=== PATIENT | male | born 1970 | race Caucasian/White ===

== ENCOUNTER 2018-06-15 07:41 | Day surgery (SDC) | payer MEDICAID ==
[2018-06-15] MEDS ORDERED: Lactated Ringers 1,000 ML IV SCH (08:30)
[2018-06-15] MEDS ORDERED: fentaNYL 100 MCG/2 ML SDV ONE (09:25)
[2018-06-15] MEDS ORDERED: Propofol 200 MG/20 ML SDV ONE ×2 (09:25→09:45)
--- NOTE | 2018-06-15 11:14 | OR ---
DATE OF PROCEDURE: 06/15/2018 PREOPERATIVE DIAGNOSIS: Colon cancer screening. POSTOPERATIVE DIAGNOSIS: Two colon polyps, right colon and at 80 cm from the anal verge. PROCEDURE PERFORMED: Colonoscopy to the cecum with biopsy resection of right colon polyp and snare cautery polypectomy of polyp at 80 cm from the anal verge. SURGEON: Armin Morelos MD. ANESTHESIA: IV anesthesia with monitored anesthesia care. INDICATION: This 48-year-old white male is referred for a colonoscopy for colon cancer screening. He has never had a colonoscopic exam. I counseled him for the procedure including risks and alternatives, and he gave his informed consent to proceed. DESCRIPTION OF PROCEDURE: The patient was placed in the left lateral decubitus position. IV anesthesia was administered by the Anesthesia Service. Time-out was held. A rectal exam was performed, which was unremarkable. The flexible video Olympus colonoscope was introduced through his anus, up his rectum, and out his colon all the way to the cecum. Once the cecum was reached, the scope was slowly withdrawn examining the mucosa throughout. In the right colon, we saw a small polyp which was removed with multiple bites of the biopsy forceps. The scope was withdrawn further with no other lesions noted until we reached about 80 cm from anal verge. Here, another polyp was seen, which was a little larger. We initially biopsied it and then placed a snare about its base. It was elevated up away from the bowel wall and amputated with the snare. It was aspirated up through the scope and captured in a polyp trap. The scope was withdrawn further with no other lesions noted. No diverticula were seen. The scope was retroflexed in the rectum with the distal rectum appearing unremarkable. The scope was straightened and removed. He tolerated the procedure well. Armin Morelos MD /[id number]
--- NOTE | 2018-06-15 11:23 | OR ---
DATE OF PROCEDURE: 06/15/2018 MTDD
== END 2018-06-15 11:05 | disposition home or self-care (01) ==
LOC: JP.SDS 07:41
PROVIDERS: ATTEND Surgery
DX: Z12.11 Encounter for screening for malignant neoplasm of colon (principal); D12.2 Benign neoplasm of ascending colon; D12.4 Benign neoplasm of descending colon; I45.10 Unspecified right bundle-branch block; I12.9 Hypertensive chronic kidney disease with stage 1 through stage 4 chronic kidney disease, or unspecified chronic kidney disease; N18.3 Chronic kidney disease, stage 3 (moderate); F32.9 Major depressive disorder, single episode, unspecified; G47.30 Sleep apnea, unspecified; Z86.73 Personal history of transient ischemic attack (TIA), and cerebral infarction without residual deficits
CPT/HCPCS: 45380; 45385; 88305; J2704; J3010; J7120

== ENCOUNTER 2019-07-03 10:58 | Inpatient (IN) | payer MEDICAID, OTHER ==
[2019-07-03] MEDS ORDERED: Sodium Chloride 0.9% 1,000 ML IV SCH ×2 (11:45→13:30)
--- NOTE | 2019-07-03 11:53 | EDM.PDOC ---
ED HPI GENERAL MEDICAL PROBLEM - General Chief Complaint: Gastrointestinal Problem Stated Complaint: FLU ?? Time Seen by Provider: 07/03/19 11:30 Source of Information: Reports: Patient History Limitations: Reports: No Limitations - History of Present Illness INITIAL COMMENTS - FREE TEXT/NARRATIVE: 49-year-old male presents with lightheaded and dizziness, especially with ambulation along with intermittent shortness of breath. No fevers or chills. His problem started several days ago when he had 3 consecutive days of illness consisting of persistent emesis, nausea and vomiting and dry heaving. Some loose stools. No fevers or chills. He has had this in the past but it is never lasted this long. He has a history of hypertension and continues to take his blood pressure medicine. He claims he drank "a gallon" of Gatorade over 24 hours after he could start to drink fluids again but is not feeling better. He called the clinic to get an evaluation for his dizziness and weakness and they sent him to the emergency room. Onset: Gradual Duration: Day(s): (Over the past 5 to 7 days) Associated Symptoms: Reports: Malaise, Nausea/Vomiting (Nausea has improved), Shortness of Breath (Especially with activity), Weakness. Denies: Confusion, Chest Pain, Cough Headache Pain Score (Numeric/FACES): 3 - Related Data Allergies Allergy/AdvReac Type Severity Reaction Status Date / Time bupropion AdvReac Other Verified 07/03/19 11:22 varenicline [From Chantix] AdvReac Other Verified 07/03/19 11:22 Home Meds: Home Meds Aspirin [Aspirin EC] 325 mg PO DAILY 06/06/18 [History] FLUoxetine HCl [Prozac] 20 mg PO DAILY 06/06/18 [History] Fluticasone Propionate [Flonase] 2 spray INH DAILY 06/06/18 [History] Levothyroxine Sodium [Synthroid] 112 mcg PO DAILY 06/06/18 [History] Lisinopril 20 mg PO DAILY 06/06/18 [History] Propranolol HCl [Inderal LA] 60 mg PO DAILY 06/06/18 [History] Simvastatin 10 mg PO BEDTIME 06/06/18 [History] Past Medical History HEENT History: Reports: Allergic Rhinitis, Impaired Vision Cardiovascular History: Reports: High Cholesterol, Hypertension, Other (See Below) Other Cardiovascular History: rt. 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 2 years ago Psychiatric History: Reports: Addiction, Anxiety Endocrine/Metabolic History: Reports: Hypothyroidism Hematologic History: Reports: Anemia, Other (See Below) Other Hematologic History: Vitamin D Deficiency Dermatologic History: Reports: Psoriasis - Infectious Disease History Infectious Disease History: Reports: Chicken Pox - Past Surgical History Cardiovascular Surgical History: Reports: Other (See Below) Other Cardiovascular Surgeries/Procedures: angiogram GI Surgical History: Reports: Colonoscopy, Taylor Fundoplication, Polypectomy Social & Family History - Family History Family Medical History: Noncontributory - Tobacco Use Smoking Status *Q: Former Smoker Years of Tobacco use: 30 Used Tobacco, but Quit: Yes Month/Year Tobacco Last Used: 2015 - Caffeine Use Caffeine Use: Reports: None - Recreational Drug Use Recreational Drug Use: Yes Recreational Drug Type: Reports: Marijuana/Hashish ED ROS GENERAL - Review of Systems Review Of Systems: See Below Constitutional: Reports: Malaise, Decreased Appetite. Denies: Fever, Chills HEENT: Reports: No Symptoms Respiratory: Reports: Shortness of Breath (With activity) Cardiovascular: Reports: Dyspnea on Exertion. Denies: Chest Pain, Palpitations GI/Abdominal: Reports: Abdominal Pain (Muscles of the abdomen are sore from retching), Diarrhea (His nausea, vomiting and diarrhea have all improved), Nausea, Vomiting : Reports: Other (Decreased urinary frequency, no pain or dysuria) ED EXAM, GENERAL - Physical Exam Exam: See Below Exam Limited By: No Limitations General Appearance: Alert, No Apparent Distress Eye Exam: Bilateral Eye: Normal Inspection (Good hydration, no jaundice) Head: Atraumatic Respiratory/Chest: No Respiratory Distress, Lungs Clear Cardiovascular: Regular Rate, Rhythm. No: Tachycardia GI/Abdominal: Soft, Tender (Abdominal wall is tender but he has no guarding or rebound tenderness. Bowel sounds are hypoactive but present) Extremities: Normal Inspection. No: Pedal Edema Neurological: Alert, Oriented, No Motor/Sensory Deficits Psychiatric: Normal Affect, Normal Mood Skin Exam: Warm, Dry Course - Vital Signs Last Recorded V/S: Last Vital Signs Temp 95.2 F L 07/03/19 11:27 Pulse 56 L 07/03/19 13:15 Resp 17 07/03/19 13:15 BP 92/59 L 07/03/19 13:15 Pulse Ox 99 07/03/19 13:15 - Orders/Labs/Meds Orders: Active Orders 24 hr Category Date Time Status Sodium Chloride 0.9% [Normal Saline] 1,000 ml Med 07/03/19 11:45 Active IV ASDIRECTED Sodium Chloride 0.9% [Normal Saline] 1,000 ml Med 07/03/19 13:30 Active IV ASDIRECTED Medication Orders Sodium Chloride (Normal Saline) 1,000 mls @ 1,000 mls/hr IV ASDIRECTED VIRAL Last Admin: 07/03/19 11:47 Dose: 1,000 mls/hr Sodium Chloride (Normal Saline) 1,000 mls @ 1,000 mls/hr IV ASDIRECTED VIRAL Stop: 07/03/19 14:31 Labs: Laboratory Tests 07/03/19 07/03/19 Range/Units 11:47 11:47 WBC 7.8 (4.5-11.0) K/uL RBC 4.10 L (4.30-5.90) M/uL Hgb 13.9 (12.0-15.0) g/dL Hct 39.1 L (40.0-54.0) % MCV 95 (80-98) fL MCH 34 H (27-31) pg MCHC 36 (32-36) % Plt Count 258 (150-400) K/uL Neut % (Auto) 77 H (36-66) % Lymph % (Auto) 12 L (24-44) % [place] % (Auto) 10 H (2-6) % Eos % (Auto) 1 L (2-4) % Baso % (Auto) 1 (0-1) % Sodium 125 L (140-148) mmol/L Potassium 5.6 H (3.6-5.2) mmol/L Chloride 92 L (100-108) mmol/L Carbon Dioxide 16 L (21-32) mmol/L Anion Gap 22.6 H (5.0-14.0) mmol/L BUN 95 H* (7-18) mg/dL Creatinine 5.2 H* (0.8-1.3) mg/dL Est Cr Clr Drug Dosing 16.81 mL/min Estimated GFR (MDRD) 12 L (>60) Glucose 113 H (74-106) mg/dL Calcium 8.8 (8.5-10.1) mg/dL Total Bilirubin 0.9 (0.2-1.0) mg/dL AST 85 H (15-37) U/L ALT 135 H (12-78) U/L Alkaline Phosphatase 121 H (46-116) U/L Troponin I < 0.017 (0.000-0.056) ng/mL Total Protein 8.1 (6.4-8.2) g/dL Albumin 3.9 (3.4-5.0) g/dL Globulin 4.2 H (2.3-3.5) g/dL Albumin/Globulin Ratio 0.9 L (1.2-2.2) Lipase 742 H (73-393) U/L Meds: Medications Generic Name Dose Route Start Last Admin Trade Name Freq PRN Reason Stop Dose Admin Sodium Chloride 1,000 mls @ 1,000 mls/hr 07/03/19 11:45 07/03/19 11:47 Normal Saline IV 1,000 mls/hr ASDIRECTED VIRAL Administration Sodium Chloride 1,000 mls @ 1,000 mls/hr 07/03/19 13:30 Normal Saline IV 07/03/19 14:31 ASDIRECTED VIRAL - Re-Assessments/Exams Free Text/Narrative Re-Assessment/Exam: 07/03/19 11:56 Patient is not tachycardic but is hypotensive with an initial blood pressure of 72/48. This was repeated. An IV was started and he will be bolused with 1 L of normal saline, CBC CMP troponin and lipase were obtained. He has already taken his antihypertensive medications this morning. 07/03/19 12:40 Clinic records were reviewed and the patient does have a longstanding mild renal insufficiency, however today his creatinine returned markedly elevated at 5.2 and his BUN was 95. GFR is only 12. 07/03/19 12:42 AST, ALT, alkaline phosphatase and lipase are all mildly elevated, bilirubin is normal. Picture points to likely acute kidney injury from significant dehydration, and this patient may benefit from a day of IV hydration and monitoring kidney function. Condition will be discussed with the hospitalist service. Departure - Departure Time of Disposition: 13:31 Disposition: Admitted As Inpatient 64 Clinical Impression: Acute renal injury due to hypovolemia Hypotension Qualifiers: Hypotension type: hypotension due to hypovolemia Qualified Code(s): I95.89 - Other hypotension - Discharge Information Sepsis Event Note - Evaluation Sepsis Screening Result: No Definite Risk - Focused Exam Vital Signs: Vital Signs Temp Pulse Resp BP Pulse Ox 07/03/19 13:15 56 L 17 92/59 L 99 07/03/19 12:50 58 L 16 92/61 100 07/03/19 11:34 66 20 68/42 L 97 07/03/19 11:27 95.2 F L 68 16 70/48 L 100 07/03/19 11:20 95.2 F L 68 16 70/48 L 100 Date Exam was Performed: 07/03/19 Time Exam was Performed: 13:48 - My Orders Last 24 Hours: My Active Orders 07/03/19 11:45 Sodium Chloride 0.9% [Normal Saline] 1,000 ml IV ASDIRECTED - Assessment/Plan Last 24 Hours: My Active Orders 07/03/19 11:45 Sodium Chloride 0.9% [Normal Saline] 1,000 ml IV ASDIRECTED
--- NOTE | 2019-07-03 13:34 | PCM.HP.2 ---
H&P History of Present Illness - General Date of Service: 07/03/19 Admit Problem/Dx: Admission Diagnosis/Problem Admission Diagnosis/Problem Acute kidney injury Source of Information: Patient, Provider, RN Notes Reviewed History Limitations: Reports: No Limitations - History of Present Illness Initial Comments - Free Text/Narative: Mr. Norton is a 49-year-old gentleman who was admitted through the emergency department with weakness and lightheadedness secondary to dehydration and acute kidney injury. He reports he felt well until 6 days ago when he developed nausea with retching. He is status post Taylor fundoplication and is unable to vomit. Parents 3 full days of vomiting with essentially normal oral intake. During this period of time he also had 2 days of very watery diarrhea. Nausea and diarrhea have resolved and he denies significant abdominal pain other than abdominal wall pain related to retching. He is felt ongoing weakness and lightheadedness, yesterday he drank 1 gallon of Gatorade but noted no improvement in his symptoms. He presented to the emergency department today for further evaluation. White blood cell count normal and he has been afebrile. Blood pressure on initial presentation was very low with systolic pressure in the lower 60s. Blood pressure has improved after IV fluids. Creatinine was elevated at 5.2 with a potassium of 5.6. He has had a previous history of mild chronic kidney disease, certainly not to this extent. He does have a previous history of TIAs but these have been fairly good over the last 2 years. Headache Pain Score (Numeric/FACES): 3 - Related Data Allergies/Adverse Reactions: Allergies Allergy/AdvReac Type Severity Reaction Status Date / Time bupropion AdvReac Other Verified 07/03/19 11:22 varenicline [From Chantix] AdvReac Other Verified 07/03/19 11:22 Home Medications: Home Meds Aspirin [Aspirin EC] 325 mg PO DAILY 06/06/18 [History] FLUoxetine HCl [Prozac] 20 mg PO DAILY 06/06/18 [History] Fluticasone Propionate [Flonase] 2 spray INH DAILY 06/06/18 [History] Levothyroxine Sodium [Synthroid] 112 mcg PO DAILY 06/06/18 [History] Lisinopril 20 mg PO DAILY 06/06/18 [History] Propranolol HCl [Inderal LA] 60 mg PO DAILY 06/06/18 [History] Simvastatin 10 mg PO BEDTIME 06/06/18 [History] Past Medical History HEENT History: Reports: Allergic Rhinitis, Impaired Vision Cardiovascular History: Reports: High Cholesterol, Hypertension, Other (See Below) Other Cardiovascular History: rt. 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 2 years ago Psychiatric History: Reports: Addiction, Anxiety Endocrine/Metabolic History: Reports: Hypothyroidism Hematologic History: Reports: Anemia, Other (See Below) Other Hematologic History: Vitamin D Deficiency Dermatologic History: Reports: Psoriasis - Infectious Disease History Infectious Disease History: Reports: Chicken Pox - Past Surgical History Cardiovascular Surgical History: Reports: Other (See Below) Other Cardiovascular Surgeries/Procedures: angiogram GI Surgical History: Reports: Colonoscopy, Taylor Fundoplication, Polypectomy Social & Family History - Family History Family Medical History: Noncontributory - Tobacco Use Smoking Status *Q: Former Smoker Years of Tobacco use: 30 Used Tobacco, but Quit: Yes Month/Year Tobacco Last Used: 2015 - Caffeine Use Caffeine Use: Reports: None - Recreational Drug Use Recreational Drug Use: Yes Recreational Drug Type: Reports: Marijuana/Hashish H&P Review of Systems - Review of Systems: Review Of Systems: See Below General: Reports: Malaise, Weakness, Fatigue, Decreased Appetite, Weight Loss. Denies: Fever, Chills HEENT: Reports: No Symptoms Pulmonary: Reports: No Symptoms Cardiovascular: Reports: Dyspnea on Exertion, Lightheadedness. Denies: Chest Pain, Palpitations, Orthopnea, PND, Edema Gastrointestinal: Reports: Abdominal Pain. Denies: Diarrhea, Distension, Hematemesis, Hematochezia, Melena, Nausea, Vomiting Genitourinary: Reports: No Symptoms Musculoskeletal: Reports: No Symptoms Skin: Reports: No Symptoms Psychiatric: Reports: No Symptoms Neurological: Reports: No Symptoms Hematologic/Lymphatic: Reports: No Symptoms Immunologic: Reports: No Symptoms Exam - Exam Exam: See Below - Vital Signs Vital Signs: Last Vital Signs Temp 95.2 F L 07/03/19 11:27 Pulse 56 L 07/03/19 13:15 Resp 17 07/03/19 13:15 BP 92/59 L 07/03/19 13:15 Pulse Ox 99 07/03/19 13:15 Weight: 212 lb - Exam General: Alert, Oriented, Cooperative, Mild Distress HEENT: Conjunctiva Clear, Hearing Intact, Pupils Equal Neck: Supple, Trachea Midline, +2 Carotid Pulse wo Bruit Lungs: Clear to Auscultation, Normal Respiratory Effort Cardiovascular: Regular Rate, Regular Rhythm, Normal S1, Normal S2. No: Systolic Murmur, Diastolic Murmur GI/Abdominal Exam: Soft, No Organomegaly, Tender. No: Distended, Guarding, Rigid, Rebound Back Exam: Normal Inspection, Full Range of Motion Extremities: Non-Tender, No Pedal Edema Skin: Warm, Dry, Intact Neurological: Cranial Nerves Intact, Strength Equal Bilateral, Normal Speech, Normal Tone, Sensation Intact. No: Focal Deficit Neuro Extensive - Mental Status: Alert, Oriented x3, Normal Mood/Affect, Normal Cognition, Memory Intact - Patient Data Lab Results Last 24 hrs: Laboratory Results - last 24 hr 07/03/19 07/03/19 Range/Units 11:47 11:47 WBC 7.8 (4.5-11.0) K/uL RBC 4.10 L (4.30-5.90) M/uL Hgb 13.9 (12.0-15.0) g/dL Hct 39.1 L (40.0-54.0) % MCV 95 (80-98) fL MCH 34 H (27-31) pg MCHC 36 (32-36) % Plt Count 258 (150-400) K/uL Neut % (Auto) 77 H (36-66) % Lymph % (Auto) 12 L (24-44) % [place] % (Auto) 10 H (2-6) % Eos % (Auto) 1 L (2-4) % Baso % (Auto) 1 (0-1) % Sodium 125 L (140-148) mmol/L Potassium 5.6 H (3.6-5.2) mmol/L Chloride 92 L (100-108) mmol/L Carbon Dioxide 16 L (21-32) mmol/L Anion Gap 22.6 H (5.0-14.0) mmol/L BUN 95 H* (7-18) mg/dL Creatinine 5.2 H* (0.8-1.3) mg/dL Est Cr Clr Drug Dosing 16.81 mL/min Estimated GFR (MDRD) 12 L (>60) Glucose 113 H (74-106) mg/dL Calcium 8.8 (8.5-10.1) mg/dL Total Bilirubin 0.9 (0.2-1.0) mg/dL AST 85 H (15-37) U/L ALT 135 H (12-78) U/L Alkaline Phosphatase 121 H (46-116) U/L Troponin I < 0.017 (0.000-0.056) ng/mL Total Protein 8.1 (6.4-8.2) g/dL Albumin 3.9 (3.4-5.0) g/dL Globulin 4.2 H (2.3-3.5) g/dL Albumin/Globulin Ratio 0.9 L (1.2-2.2) Lipase 742 H (73-393) U/L Result Diagrams: 07/03/19 11:47 07/03/19 11:47 Sepsis Event Note - Evaluation Sepsis Screening Result: No Definite Risk - Focused Exam Vital Signs: Vital Signs Temp Pulse Resp BP Pulse Ox 07/03/19 13:15 56 L 17 92/59 L 99 07/03/19 12:50 58 L 16 92/61 100 07/03/19 11:34 66 20 68/42 L 97 07/03/19 11:27 95.2 F L 68 16 70/48 L 100 07/03/19 11:20 95.2 F L 68 16 70/48 L 100 Date Exam was Performed: 07/03/19 Time Exam was Performed: 13:29 *Q Meaningful Use (ADM) - VTE Risk Assess *Q Each Risk Factor Represents 1 Point: Age 41 - 59 years, Obesity ( BMI > 25 kg/m2 ) Total Score 1 Point Risk Factors: 2 Each Risk Factor Represents 2 Points: None Total Score 2 Point Risk Factors: 0 Each Risk Factor Represents 3 Points: None Total Score 3 Point Risk Factors: 0 Each Risk Factor Represents 5 Points: None Total Score 5 Point Risk Factors: 0 Venous Thromboembolism Risk Factor Score *Q: 2 Problem List Initiated/Reviewed/Updated: Yes Orders Last 24hrs: Active Orders 24 hr Category Date Time Status Patient Status Manage Transfer [TRANSFER] Routine ADT 07/03/19 13:22 Ordered Sodium Chloride 0.9% [Normal Saline] 1,000 ml Med 07/03/19 11:45 Active IV ASDIRECTED Sodium Chloride 0.9% [Normal Saline] 1,000 ml Med 07/03/19 13:30 Active IV ASDIRECTED Resuscitation Status Routine Resus Stat 07/03/19 13:24 Ordered Medication Orders Sodium Chloride (Normal Saline) 1,000 mls @ 1,000 mls/hr IV ASDIRECTED VIRAL Last Admin: 07/03/19 11:47 Dose: 1,000 mls/hr Sodium Chloride (Normal Saline) 1,000 mls @ 1,000 mls/hr IV ASDIRECTED VIRAL Stop: 07/03/19 14:31 Assessment/Plan Comment:: ASSESSMENT AND PLAN ACUTE KIDNEY INJURY-secondary to dehydration with intravascular volume depletion , associated with recent viral gastroenteritis. -Rest of IV fluid replacement -Maintain MAP of greater than 65 -Closely monitor urine output and renal function HYPERKALEMIA-mild, secondary to acute kidney injury -IV fluids as above -Reassess potassium in a.m. VIRAL GASTROENTERITIS-essentially resolved, no further symptoms of significant intra-abdominal pain, nausea, or diarrhea MAINTENANCE ISSUES -DVT prophylaxis; SCUDs -GI prophylaxis; Protonix 40 mg IV twice daily -Farmer catheter; not indicated -Nutrition; regular diet -Nicotine dependence; not required CODE STATUS-FULL CODE ADMISSION STATUS-patient will be admitted to inpatient status, expect at least a 2 night hospital stay for evaluation and management of problems as outlined above. At the time of this admission I do not reasonably expected evaluation and management of this problem will require more than a 96 hour hospital stay. DISPOSITION-anticipate discharge to home after the hospital stay. PRIMARY CARE PROVIDER-[facility] [place] - Mortality Measure Prognosis:: Good
[2019-07-03] MEDS ORDERED: Sodium Chloride 0.9% 10 ML Syringe FLUSH PRN (14:03)
[2019-07-03] MEDS: Sodium Chloride 0.9% 1,000 ML IV SCH ×3 (15:30→23:37)
[2019-07-03] MEDS: Pantoprazole 40 MG Vial IV SCH (16:55)
[2019-07-04] MEDS: Acetaminophen 325 MG Tab PO PRN ×4 (02:33→23:24)
[2019-07-04] MEDS: Sodium Chloride 0.9% 1,000 ML IV SCH ×2 (03:44→11:25)
[2019-07-04] MEDS: Pantoprazole 40 MG Vial IV SCH ×2 (03:53→16:15)
[2019-07-04] MEDS: Levothyroxine 112 MCG Tab PO SCH (07:13)
[2019-07-04] MEDS: Aspirin 325 MG Tab.EC PO SCH (08:34)
[2019-07-04] MEDS: FLUoxetine 20 MG Cap PO SCH (08:34)
--- NOTE | 2019-07-04 14:50 | PCM.PN ---
- General Info Date of Service: 07/04/19 Subjective Update: Mr. Norton has been stable since admission, appetite has improved and urine output has been very good. Renal function has shown significant improvement although remains elevated, potassium remains mildly elevated, and there is ongoing evidence of metabolic acidosis likely related to his kidney dysfunction. Functional Status: Reports: Tolerating Diet, Ambulating, Urinating - Review of Systems General: Reports: Weakness, Fatigue. Denies: Fever, Chills Pulmonary: Reports: No Symptoms Cardiovascular: Reports: No Symptoms Gastrointestinal: Reports: No Symptoms Genitourinary: Reports: No Symptoms - Patient Data Vitals - Most Recent: Last Vital Signs Temp 96.7 F L 07/04/19 11:21 Pulse 74 07/04/19 11:21 Resp 16 07/04/19 11:21 BP 94/56 L 07/04/19 11:21 Pulse Ox 96 07/04/19 11:21 Weight - Most Recent: 216 lb I&O - Last 24 Hours: Intake & Output 07/03/19 07/04/19 07/04/19 22:59 06:59 14:59 Intake Total 1920 2326 720 Output Total 2625 500 2375 Balance -705 1826 -1655 Lab Results Last 24 Hours: Laboratory Results - last 24 hr 07/04/19 07/04/19 Range/Units 04:20 04:20 WBC 3.9 L (4.5-11.0) K/uL RBC 3.22 L (4.30-5.90) M/uL Hgb 11.0 L D (12.0-15.0) g/dL Hct 31.4 L (40.0-54.0) % MCV 98 (80-98) fL MCH 34 H (27-31) pg MCHC 35 (32-36) % Plt Count 144 L (150-400) K/uL Neut % (Auto) 66 (36-66) % Lymph % (Auto) 21 L (24-44) % [place] % (Auto) 11 H (2-6) % Eos % (Auto) 1 L (2-4) % Baso % (Auto) 0 (0-1) % Sodium 134 L (140-148) mmol/L Potassium 5.5 H (3.6-5.2) mmol/L Chloride 103 (100-108) mmol/L Carbon Dioxide 16 L (21-32) mmol/L Anion Gap 20.5 H (5.0-14.0) mmol/L BUN 67 H (7-18) mg/dL Creatinine 2.5 H D (0.8-1.3) mg/dL Est Cr Clr Drug Dosing 34.96 mL/min Estimated GFR (MDRD) 27 L (>60) Glucose 95 (74-106) mg/dL Calcium 7.4 L D (8.5-10.1) mg/dL Med Orders - Current: Current Medications Acetaminophen (Tylenol) 650 mg PO Q4H PRN PRN Reason: Pain (Mild 1-3)/fever Last Admin: 07/04/19 07:24 Dose: 650 mg Aspirin (Ecotrin) 325 mg PO DAILY [facility] Last Admin: 07/04/19 08:34 Dose: 325 mg Fluoxetine HCl (Prozac) 20 mg PO DAILY [facility] Last Admin: 07/04/19 08:34 Dose: 20 mg Levothyroxine Sodium (Levothyroxine) 112 mcg PO DAILY@0730 [facility] Last Admin: 07/04/19 07:13 Dose: 112 mcg Ondansetron HCl (Zofran) 4 mg IV Q4H PRN PRN Reason: Nausea/Vomiting Pantoprazole Sodium (Protonix Iv) 40 mg IV Q12H [facility] Last Admin: 07/04/19 03:53 Dose: 40 mg Sodium Chloride (Saline Flush) 10 ml FLUSH ASDIRECTED PRN PRN Reason: Keep Vein Open Discontinued Medications Sodium Chloride (Normal Saline) 1,000 mls @ 1,000 mls/hr IV ASDIRECTED [facility] Last Admin: 07/03/19 11:47 Dose: 1,000 mls/hr Sodium Chloride (Normal Saline) 1,000 mls @ 1,000 mls/hr IV ASDIRECTED [facility] Stop: 07/03/19 14:31 Last Admin: 07/03/19 14:12 Dose: 1,000 mls/hr Sodium Chloride (Normal Saline) 1,000 mls @ 250 mls/hr IV ASDIRECTED [facility] Stop: 07/03/19 22:31 Last Admin: 07/03/19 19:37 Dose: 250 mls/hr Sodium Chloride (Normal Saline) 1,000 mls @ 125 mls/hr IV ASDIRECTED [facility] Last Admin: 07/04/19 11:25 Dose: 125 mls/hr - Exam General: Alert, Oriented, Cooperative, Mild Distress Lungs: Clear to Auscultation, Normal Respiratory Effort Cardiovascular: Regular Rate, Regular Rhythm, No Murmurs GI/Abdominal Exam: Soft, Non-Tender, No Organomegaly, No Distention Extremities: Non-Tender, No Pedal Edema Sepsis Event Note - Evaluation Sepsis Screening Result: No Definite Risk - Focused Exam Vital Signs: Vital Signs Temp Pulse Resp BP Pulse Ox 07/04/19 11:21 96.7 F L 74 16 94/56 L 96 07/04/19 08:35 96.4 F L 78 16 96/53 L 96 07/04/19 07:09 96.3 F L 74 16 90/62 99 Date Exam was Performed: 07/04/19 Time Exam was Performed: 14:47 - Problem List Review Problem List Initiated/Reviewed/Updated: Yes - My Orders Last 24 Hours: My Active Orders 07/03/19 14:03 Patient Status [ADT] Routine Ambulate [RC] QID Height and Weight [RC] DAILY Intake and Output [RC] QSHIFT Notify Provider Vital Signs [RC] ASDIRECTED Oxygen Therapy [RC] PRN Peripheral IV Care [RC] Q12H Up With Assistance [RC] ASDIRECTED Up to Chair [RC] QID VTE/DVT Education [RC] Per Unit Routine Vital Signs [RC] Q4H Acetaminophen [Tylenol] 650 mg PO Q4H PRN Ondansetron [Zofran] 4 mg IV Q4H PRN Sodium Chloride 0.9% [Saline Flush] 10 ml FLUSH ASDIRECTED PRN Peripheral IV Insertion Adult [OM.PC] Routine Sequential Compression Device [OM.PC] Per Unit Routine 07/03/19 16:00 Pantoprazole [ProTONIX IV] 40 mg IV Q12H 07/04/19 07:30 Levothyroxine 112 mcg PO DAILY@0730 07/04/19 09:00 Aspirin [Ecotrin] 325 mg PO DAILY FLUoxetine [PROzac] 20 mg PO DAILY 07/04/19 14:46 Convert IV to Saline Lock [OM.PC] Routine 07/04/19 17:00 BASIC METABOLIC PANEL,BMP [CHEM] Stat 07/05/19 05:00 BASIC METABOLIC PANEL,BMP [CHEM] Timed - Plan Plan:: ASSESSMENT AND PLAN ACUTE KIDNEY INJURY-secondary to dehydration with intravascular volume depletion , associated with recent viral gastroenteritis. Significant improvement since admission with significant decrease in creatinine. -Saline lock IV -Closely monitor urine output and renal function HYPERKALEMIA-mild, secondary to acute kidney injury, potassium level remains mildly elevated, expect further improvement over the last 24 hours -Reassess potassium in a.m. VIRAL GASTROENTERITIS-essentially resolved, no further symptoms of significant intra-abdominal pain, nausea, or diarrhea MAINTENANCE ISSUES -DVT prophylaxis; SCUDs -GI prophylaxis; Protonix 40 mg IV twice daily -Farmer catheter; not indicated -Nutrition; regular diet -Nicotine dependence; not required CODE STATUS-FULL CODE ADMISSION STATUS-patient will be admitted to inpatient status, expect at least a 2 night hospital stay for evaluation and management of problems as outlined above. At the time of this admission I do not reasonably expected evaluation and management of this problem will require more than a 96 hour hospital stay. DISPOSITION-anticipate discharge to home after the hospital stay. PRIMARY CARE PROVIDER-Jack Hooks
[2019-07-04] MEDS ORDERED: Docusate Sodium 100 MG Cap PO PRN (16:00)
[2019-07-04] MEDS ORDERED: Magnesium Hydroxide 400 MG/5 ML Susp 30 ML Cup PO PRN (16:00)
[2019-07-04] MEDS: Simvastatin 20 MG Tab PO SCH (20:36)
[2019-07-05] MEDS: Pantoprazole 40 MG Vial IV SCH ×2 (04:01→15:13)
[2019-07-05] MEDS ORDERED: Sodium Polystyrene Sulfonate 15 GM/60 ML Susp 60 ML Bot PO ONE ×4 (06:16→23:29)
[2019-07-05] MEDS: Levothyroxine 112 MCG Tab PO SCH (07:20)
[2019-07-05] MEDS: Ondansetron 4 MG/2 ML SDV IV PRN ×2 (08:26→23:56)
[2019-07-05] MEDS: FLUoxetine 20 MG Cap PO SCH (08:31)
[2019-07-05] MEDS: Aspirin 325 MG Tab.EC PO SCH (08:31)
--- NOTE | 2019-07-05 16:42 | PCM.PN ---
- General Info Date of Service: 07/05/19 Subjective Update: Mr. Norton has been stable since yesterday, appetite and energy level seem to be slowly improving, there is been no further diarrhea. Vital signs have been good and he has remained afebrile. Potassium level was rechecked yesterday evening and was in the upper range of normal. Unfortunately this morning and had increased to 6.1 and he did receive a dose of Kayexalate. Follow-up potassium this afternoon is still modestly elevated at 5.4. Functional Status: Reports: Tolerating Diet, Ambulating, Urinating - Review of Systems General: Reports: Weakness, Malaise. Denies: Fever, Chills Pulmonary: Reports: No Symptoms Cardiovascular: Reports: No Symptoms Gastrointestinal: Reports: No Symptoms - Patient Data Vitals - Most Recent: Last Vital Signs Temp 98.8 F 07/05/19 15:45 Pulse 89 07/05/19 15:45 Resp 18 07/05/19 15:45 BP 96/69 07/05/19 15:45 Pulse Ox 98 07/05/19 15:45 Weight - Most Recent: 214 lb 6.4 oz I&O - Last 24 Hours: Intake & Output 07/05/19 07/05/19 07/05/19 06:59 14:59 22:59 Intake Total 500 Balance 500 Lab Results Last 24 Hours: Laboratory Results - last 24 hr 07/04/19 07/05/19 07/05/19 Range/Units 16:53 05:49 13:45 Sodium 135 L 134 L (140-148) mmol/L Potassium 5.2 6.1 H* 5.4 H (3.6-5.2) mmol/L Chloride 103 100 (100-108) mmol/L Carbon Dioxide 20 L 24 (21-32) mmol/L Anion Gap 17.2 H 16.1 H (5.0-14.0) mmol/L BUN 54 H 43 H (7-18) mg/dL Creatinine 2.0 H 1.8 H (0.8-1.3) mg/dL Est Cr Clr Drug Dosing 43.70 48.55 mL/min Estimated GFR (MDRD) 35 L 40 L (>60) Glucose 106 105 (74-106) mg/dL Calcium 7.4 L 7.8 L (8.5-10.1) mg/dL Med Orders - Current: Current Medications Acetaminophen (Tylenol) 650 mg PO Q4H PRN PRN Reason: Pain (Mild 1-3)/fever Last Admin: 07/04/19 23:24 Dose: 650 mg Aspirin (Ecotrin) 325 mg PO DAILY [facility] Last Admin: 07/05/19 08:31 Dose: 325 mg Docusate Sodium (Colace) 100 mg PO BID PRN PRN Reason: Constipation Fluoxetine HCl (Prozac) 20 mg PO DAILY [facility] Last Admin: 07/05/19 08:31 Dose: 20 mg Levothyroxine Sodium (Levothyroxine) 112 mcg PO DAILY@0730 [facility] Last Admin: 07/05/19 07:20 Dose: 112 mcg Magnesium Hydroxide (Milk Of Magnesia) 30 ml PO Q4H PRN PRN Reason: Constipation Last Admin: 07/04/19 16:13 Dose: 30 ml Ondansetron HCl (Zofran) 4 mg IV Q4H PRN PRN Reason: Nausea/Vomiting Last Admin: 07/05/19 08:26 Dose: 4 mg Pantoprazole Sodium (Protonix Iv) 40 mg IV Q12H [facility] Last Admin: 07/05/19 15:13 Dose: 40 mg Simvastatin (Zocor) 10 mg PO BEDTIME [facility] Last Admin: 07/04/19 20:36 Dose: 10 mg Sodium Chloride (Saline Flush) 10 ml FLUSH ASDIRECTED PRN PRN Reason: Keep Vein Open Discontinued Medications Sodium Chloride (Normal Saline) 1,000 mls @ 1,000 mls/hr IV ASDIRECTED [facility] Last Admin: 07/03/19 11:47 Dose: 1,000 mls/hr Sodium Chloride (Normal Saline) 1,000 mls @ 1,000 mls/hr IV ASDIRECTED [facility] Stop: 07/03/19 14:31 Last Admin: 07/03/19 14:12 Dose: 1,000 mls/hr Sodium Chloride (Normal Saline) 1,000 mls @ 250 mls/hr IV ASDIRECTED [facility] Stop: 07/03/19 22:31 Last Admin: 07/03/19 19:37 Dose: 250 mls/hr Sodium Chloride (Normal Saline) 1,000 mls @ 125 mls/hr IV ASDIRECTED [facility] Last Admin: 07/04/19 11:25 Dose: 125 mls/hr Sodium Polystyrene Sulfonate (Kayexalate) 30 gm PO ONETIME ONE Stop: 07/05/19 06:17 Last Admin: 07/05/19 07:23 Dose: Not Given Sodium Polystyrene Sulfonate (Kayexalate) 30 gm PO ONETIME ONE Stop: 07/05/19 07:16 Sodium Polystyrene Sulfonate (Kayexalate) 30 gm PO ONETIME ONE Stop: 07/05/19 07:31 Last Admin: 07/05/19 07:20 Dose: 30 gm - Exam Quality Assessment: DVT Prophylaxis General: Alert, Oriented, Cooperative, Mild Distress Lungs: Clear to Auscultation, Normal Respiratory Effort Cardiovascular: Regular Rate, Regular Rhythm, No Murmurs GI/Abdominal Exam: Soft, No Organomegaly, Tender. No: Distended, Guarding, Rigid, Rebound Extremities: Non-Tender, No Pedal Edema Sepsis Event Note - Evaluation Sepsis Screening Result: No Definite Risk - Focused Exam Vital Signs: Vital Signs Temp Pulse Resp BP Pulse Ox 07/05/19 15:45 98.8 F 89 18 96/69 98 07/05/19 10:31 98.1 F 106 H 18 101/75 98 07/05/19 07:24 98.4 F 114 H 16 107/71 100 Date Exam was Performed: 07/05/19 Time Exam was Performed: 16:39 - Problem List Review Problem List Initiated/Reviewed/Updated: Yes - My Orders Last 24 Hours: My Active Orders 07/04/19 16:00 Docusate Sodium [Colace] 100 mg PO BID PRN Magnesium Hydroxide [Milk of Magnesia] 30 ml PO Q4H PRN 07/04/19 21:00 Simvastatin [Zocor] 10 mg PO BEDTIME 07/05/19 22:00 POTASSIUM,K [CHEM] Stat 07/06/19 05:00 BASIC METABOLIC PANEL,BMP [CHEM] Timed - Plan Plan:: ASSESSMENT AND PLAN ACUTE KIDNEY INJURY-secondary to dehydration with intravascular volume depletion , associated with recent viral gastroenteritis. Significant improvement since admission with significant decrease in creatinine. -Saline lock IV -Closely monitor urine output and renal function HYPERKALEMIA-potassium increased significantly this morning to 6.1, now 5.4 this afternoon. We will continue to monitor until it has stabilized within normal range -Reassess potassium later tonight and in a.m. VIRAL GASTROENTERITIS-essentially resolved, no further symptoms of significant intra-abdominal pain, nausea, or diarrhea MAINTENANCE ISSUES -DVT prophylaxis; SCUDs -GI prophylaxis; Protonix 40 mg IV twice daily -Farmer catheter; not indicated -Nutrition; regular diet -Nicotine dependence; not required CODE STATUS-FULL CODE ADMISSION STATUS-patient will be admitted to inpatient status, expect at least a 2 night hospital stay for evaluation and management of problems as outlined above. At the time of this admission I do not reasonably expected evaluation and management of this problem will require more than a 96 hour hospital stay. DISPOSITION-anticipate discharge to home after the hospital stay. PRIMARY CARE PROVIDER-Jack Hooks
[2019-07-05] MEDS: Simvastatin 20 MG Tab PO SCH (21:27)
[2019-07-06] MEDS: Pantoprazole 40 MG Vial IV SCH (05:21)
[2019-07-06] MEDS ORDERED: Pantoprazole 40 MG Tab.CR PO SCH (08:15)
[2019-07-06] MEDS ORDERED: Propranolol 60 MG Cap.ER PO SCH (09:00)
[2019-07-06] MEDS ORDERED: Non-Formulary Medication 1 Each (Omeprazole [Omeprazole] 20 MG) PO SCH (09:00)
[2019-07-06] MEDS ORDERED: Lisinopril 20 MG Tab PO SCH (09:00)
[2019-07-06] MEDS ORDERED: Hydrochlorothiazide 12.5 MG Cap PO SCH (09:00)
[2019-07-06] MEDS: Aspirin 325 MG Tab.EC PO SCH (09:01)
[2019-07-06] MEDS: Ondansetron 4 MG/2 ML SDV IV PRN ×3 (09:01→23:41)
[2019-07-06] MEDS: Levothyroxine 112 MCG Tab PO SCH (09:01)
[2019-07-06] MEDS: FLUoxetine 20 MG Cap PO SCH (09:01)
[2019-07-06] MEDS ORDERED: Sodium Chloride 0.9% 1,000 ML IV ONE (09:45)
--- NOTE | 2019-07-06 09:50 | PCM.PN ---
- General Info Date of Service: 07/06/19 Subjective Update: has redeveloped symptoms of nausea and diarrhea, seemingly related to use of Kayexalate for his persistent hyperkalemia. Potassium level is remained elevated despite 2 doses of Kayexalate, likely secondary to underlying persistent renal insufficiency. He has remained afebrile, blood pressure somewhat borderline likely secondary to recurrent dehydration. Functional Status: Reports: Ambulating, Urinating. Denies: Tolerating Diet - Review of Systems General: Reports: Weakness. Denies: Fever, Chills Pulmonary: Reports: No Symptoms Cardiovascular: Reports: No Symptoms Gastrointestinal: Reports: Abdominal Pain, Decreased Appetite, Diarrhea, Nausea , Vomiting. Denies: Difficulty Swallowing - Patient Data Vitals - Most Recent: Last Vital Signs Temp 99.4 F 07/06/19 08:52 Pulse 93 07/06/19 08:52 Resp 20 07/06/19 08:52 BP 95/79 07/06/19 09:00 Pulse Ox 99 07/06/19 08:52 Weight - Most Recent: 211 lb I&O - Last 24 Hours: Intake & Output 07/05/19 07/06/19 07/06/19 22:59 06:59 14:59 Intake Total 2030 400 Balance 2030 400 Lab Results Last 24 Hours: Laboratory Results - last 24 hr 07/05/19 07/05/19 07/06/19 Range/Units 13:45 21:55 05:46 Sodium 133 L (140-148) mmol/L Potassium 5.4 H 5.5 H 5.5 H (3.6-5.2) mmol/L Chloride 98 L (100-108) mmol/L Carbon Dioxide 24 (21-32) mmol/L Anion Gap 16.5 H (5.0-14.0) mmol/L BUN 30 H (7-18) mg/dL Creatinine 1.8 H (0.8-1.3) mg/dL Est Cr Clr Drug Dosing 48.55 mL/min Estimated GFR (MDRD) 40 L (>60) Glucose 113 H (74-106) mg/dL Calcium 7.4 L (8.5-10.1) mg/dL Med Orders - Current: Current Medications Acetaminophen (Tylenol) 650 mg PO Q4H PRN PRN Reason: Pain (Mild 1-3)/fever Last Admin: 07/04/19 23:24 Dose: 650 mg Aspirin (Ecotrin) 325 mg PO DAILY [facility] Last Admin: 07/06/19 09:01 Dose: 325 mg Docusate Sodium (Colace) 100 mg PO BID PRN PRN Reason: Constipation Fluoxetine HCl (Prozac) 20 mg PO DAILY [facility] [place] Last Admin: 07/06/19 09:01 Dose: 20 mg Sodium Chloride (Normal Saline) 1,000 mls @ 500 mls/hr IV ASDIRECTED [facility] [place] Stop: 07/06/19 13:46 Sodium Chloride (Normal Saline) 1,000 mls @ 125 mls/hr IV ASDIRECTED [facility] [place] Levothyroxine Sodium (Levothyroxine) 112 mcg PO DAILY@0730 [facility] Last Admin: 07/06/19 09:01 Dose: 112 mcg Magnesium Hydroxide (Milk Of Magnesia) 30 ml PO Q4H PRN PRN Reason: Constipation Last Admin: 07/04/19 16:13 Dose: 30 ml Ondansetron HCl (Zofran) 4 mg IV Q4H PRN PRN Reason: Nausea/Vomiting Last Admin: 07/06/19 09:01 Dose: 4 mg Pantoprazole Sodium (Protonix) 40 mg PO ACBREAKFAST [facility] Simvastatin (Zocor) 10 mg PO BEDTIME [facility] Last Admin: 07/05/19 21:27 Dose: 10 mg Sodium Chloride (Saline Flush) 10 ml FLUSH ASDIRECTED PRN PRN Reason: Keep Vein Open Discontinued Medications Hydrochlorothiazide (Hydrochlorothiazide) 12.5 mg PO DAILY [facility] Last Admin: 07/06/19 08:59 Dose: Not Given Sodium Chloride (Normal Saline) 1,000 mls @ 1,000 mls/hr IV ASDIRECTED [facility] [place] Last Admin: 07/03/19 11:47 Dose: 1,000 mls/hr Sodium Chloride (Normal Saline) 1,000 mls @ 1,000 mls/hr IV ASDIRECTED [facility] Stop: 07/03/19 14:31 Last Admin: 07/03/19 14:12 Dose: 1,000 mls/hr Sodium Chloride (Normal Saline) 1,000 mls @ 250 mls/hr IV ASDIRECTED [facility] [place] Stop: 07/03/19 22:31 Last Admin: 07/03/19 19:37 Dose: 250 mls/hr Sodium Chloride (Normal Saline) 1,000 mls @ 125 mls/hr IV ASDIRECTED [facility] Last Admin: 07/04/19 11:25 Dose: 125 mls/hr Lisinopril (Prinivil) 20 mg PO DAILY [facility] [place] Last Admin: 07/06/19 09:00 Dose: Not Given Pantoprazole Sodium (Protonix Iv) 40 mg IV Q12H [facility] Last Admin: 07/06/19 05:21 Dose: 40 mg Propranolol HCl (Inderal La) 60 mg PO DAILY [facility] Last Admin: 07/06/19 09:00 Dose: Not Given Sodium Polystyrene Sulfonate (Kayexalate) 30 gm PO ONETIME ONE Stop: 07/05/19 06:17 Last Admin: 07/05/19 07:23 Dose: Not Given Sodium Polystyrene Sulfonate (Kayexalate) 30 gm PO ONETIME ONE Stop: 07/05/19 07:16 Sodium Polystyrene Sulfonate (Kayexalate) 30 gm PO ONETIME ONE Stop: 07/05/19 07:31 Last Admin: 07/05/19 07:20 Dose: 30 gm Sodium Polystyrene Sulfonate (Kayexalate) 30 gm PO ONETIME ONE Stop: 07/05/19 23:30 Last Admin: 07/05/19 23:48 Dose: 30 gm - Exam Quality Assessment: DVT Prophylaxis General: Alert, Oriented, Moderate Distress Lungs: Clear to Auscultation, Normal Respiratory Effort Cardiovascular: Regular Rate, Regular Rhythm, No Murmurs GI/Abdominal Exam: Soft, No Organomegaly, Tender. No: Distended, Guarding, Rigid, Rebound Extremities: Non-Tender, No Pedal Edema Sepsis Event Note - Evaluation Sepsis Screening Result: No Definite Risk - Focused Exam Vital Signs: Vital Signs Temp Pulse Resp BP BP Pulse Ox 07/06/19 09:00 95/79 07/06/19 08:52 99.4 F 93 20 95/79 99 07/06/19 02:31 98 F 103 H 18 117/77 97 07/05/19 23:47 98.7 F 99 18 97/66 98 Date Exam was Performed: 07/06/19 Time Exam was Performed: 09:47 - Problem List Review Problem List Initiated/Reviewed/Updated: Yes - My Orders Last 24 Hours: My Active Orders 07/06/19 09:45 Sodium Chloride 0.9% [Normal Saline] 1,000 ml IV ASDIRECTED 07/06/19 13:45 Sodium Chloride 0.9% @ 125 MLS/HR (1000ml) Sodium Chloride 0.9% [Normal Saline] 1,000 ml IV ASDIRECTED 07/06/19 17:00 BASIC METABOLIC PANEL,BMP [CHEM] Stat 07/07/19 05:00 BASIC METABOLIC PANEL,BMP [CHEM] Timed 07/07/19 07:30 Pantoprazole [ProTONIX] 40 mg PO ACBREAKFAST - Plan Plan:: ASSESSMENT AND PLAN ACUTE KIDNEY INJURY-secondary to dehydration with intravascular volume depletion , associated with recent viral gastroenteritis. Creatinine has been stable since yesterday with no further improvement -Saline lock IV -Closely monitor urine output and renal function HYPERKALEMIA-potassium level has remained mildly elevated despite recurrent doses of Kayexalate -Reassess potassium later tonight and in a.m. VIRAL GASTROENTERITIS-he has experienced recurrent symptoms of nausea with retching and diarrhea, likely secondary to Kayexalate -IV fluids for hydration MAINTENANCE ISSUES -DVT prophylaxis; SCUDs -GI prophylaxis; Protonix 40 mg IV twice daily -Farmer catheter; not indicated -Nutrition; regular diet -Nicotine dependence; not required CODE STATUS-FULL CODE ADMISSION STATUS-patient will be admitted to inpatient status, expect at least a 2 night hospital stay for evaluation and management of problems as outlined above. At the time of this admission I do not reasonably expected evaluation and management of this problem will require more than a 96 hour hospital stay. DISPOSITION-anticipate discharge to home after the hospital stay. PRIMARY CARE PROVIDER-Jack Hooks
[2019-07-06] MEDS ORDERED: Sodium Chloride 0.9% 1,000 ML IV SCH (10:00)
[2019-07-06] MEDS: Sodium Chloride 0.9% 1,000 ML IV SCH ×2 (13:51→19:43)
[2019-07-06] MEDS: Simvastatin 20 MG Tab PO SCH (20:37)
[2019-07-07] MEDS: Sodium Chloride 0.9% 1,000 ML IV SCH (04:49)
[2019-07-07] MEDS: Acetaminophen 325 MG Tab PO PRN (04:51)
[2019-07-07] MEDS ORDERED: Pantoprazole 40 MG Tab.CR PO SCH (07:30)
[2019-07-07] MEDS: Levothyroxine 112 MCG Tab PO SCH (08:24)
[2019-07-07] MEDS: Aspirin 325 MG Tab.EC PO SCH (08:24)
[2019-07-07] MEDS: FLUoxetine 20 MG Cap PO SCH (08:25)
[2019-07-07] MEDS ORDERED: Calcium Carbonate/Vitamin D3 1500 MG-400 Units Tab PO SCH (09:00)
[2019-07-07] MEDS ORDERED: Calcium Gluconate 2 GM in Sodium Chloride 0.9% 100 ML IV ONE (10:00)
--- NOTE | 2019-07-07 12:58 | PCM.DCSUM1 ---
Discharge Summary - Hospital Course Brief History: Mr. Nroton is a 49-year-old gentleman who was admitted through the emergency department with hyperkalemia and acute kidney injury secondary to intravascular volume depletion and dehydration, related to recent episode of viral gastroenteritis. - Discharge Data Discharge Date: 07/07/19 Discharge Disposition: Home, Self-Care 01 Condition: Good - Referral to Home Health Primary Care Physician: Jack Hooks NP - Discharge Diagnosis/Problem(s) (1) Hyperkalemia SNOMED Code(s): 81206052 ICD Code: E87.5 - HYPERKALEMIA Status: Acute Current Visit: Yes (2) Acute renal injury due to hypovolemia SNOMED Code(s): 533101227 ICD Code: N17.9 - ACUTE KIDNEY FAILURE, UNSPECIFIED; E86.1 - HYPOVOLEMIA Status: Acute Current Visit: No (3) Hypotension SNOMED Code(s): 32773976 ICD Code: I95.9 - HYPOTENSION, UNSPECIFIED Status: Acute Current Visit: No Qualifiers: Hypotension type: hypotension due to hypovolemia Qualified Code(s): I95.89 - Other hypotension; E86.1 - Hypovolemia (4) CKD (chronic kidney disease), stage III SNOMED Code(s): 949882645 ICD Code: N18.3 - CHRONIC KIDNEY DISEASE, STAGE 3 (MODERATE) Status: Chronic Current Visit: No - Patient Summary/Data Hospital Course: Mr. Norton is a 49-year-old gentleman who was admitted through the emergency department with weakness and lightheadedness secondary to dehydration and acute kidney injury. He reports he felt well until 6 days ago when he developed nausea with retching. He is status post Taylor fundoplication and is unable to vomit. He experienced 3 full days of vomiting with essentially no oral intake. During this period of time he also had 2 days of very watery diarrhea. Nausea and diarrhea have resolved and he denies significant abdominal pain other than abdominal wall pain related to retching. He has felt ongoing weakness and lightheadedness, yesterday he drank 1 gallon of Gatorade but noted no improvement in his symptoms. He presented to the emergency department today for further evaluation. White blood cell count normal and he has been afebrile. Blood pressure on initial presentation was very low with systolic pressure in the lower 60s. Blood pressure has improved after IV fluids. Creatinine was elevated at 5.2 with a potassium of 5.6. He has had a previous history of mild chronic kidney disease, certainly not to this extent. He does have a previous history of TIAs but these have been fairly good over the last 2 years. While in the emergency department and after admission he received vigorous IV fluid replacement and then ongoing IV fluid replacement over the next few days. Renal function gradually improved and was almost back to baseline with a creatinine of 1.4 at the time of discharge. He did have ongoing hyperkalemia, likely related to his ongoing but progressively improving kidney injury. Potassium at one point did increase to 6.1 and he received 2 doses of oral Kayexalate. By the time of discharge his potassium level was within normal range. He developed recurrent nausea and diarrhea which was thought secondary to the Kayexalate. So he was placed back on additional IV fluids prior to discharge. On the morning of discharge calcium level was noted to be low as well as ionized calcium. He was started on oral calcium replacement and also received IV infusion of calcium gluconate. Activity will be as tolerated and he will resume his usual diet. Follow-up appointment will be scheduled with his primary care provider within 1 week and a BMP will be obtained at the time of follow-up appointment. - Patient Instructions Diet: Usual Diet as Tolerated Activity: As Tolerated Other/Special Instructions: Schedule follow-up appointment with primary care provider within 1 week. BMP should be obtained at the time of follow-up appointment. - Discharge Plan *PRESCRIPTION DRUG MONITORING PROGRAM REVIEWED*: Not Applicable *COPY OF PRESCRIPTION DRUG MONITORING REPORT IN PATIENT PAUL: Not Applicable Prescriptions/Med Rec: Calcium Carbonate/Vitamin D3 [Caltrate 600+D 1500 MG-400 Units] 1 tab PO BID # 60 tablet Home Medications: Home Meds Aspirin [Aspirin EC] 325 mg PO DAILY 06/06/18 [History] FLUoxetine HCl [Prozac] 20 mg PO DAILY 06/06/18 [History] Fluticasone Propionate [Flonase] 2 spray INH DAILY 06/06/18 [History] Levothyroxine Sodium [Synthroid] 112 mcg PO DAILY 06/06/18 [History] Lisinopril 20 mg PO DAILY 06/06/18 [History] Propranolol HCl [Inderal LA] 60 mg PO DAILY 06/06/18 [History] Simvastatin 10 mg PO BEDTIME 06/06/18 [History] Cholecalciferol (Vitamin D3) [Vitamin D3] 50 mcg PO DAILY 07/03/19 [History] Folic Acid 1 mg PO DAILY 07/03/19 [History] Omeprazole 20 mg PO DAILY 07/03/19 [History] Triamcinolone Acetonide [Triamcinolone Acetonide 0.5% Oint] 1 applic TOP BID [History] hydroCHLOROthiazide [Hydrochlorothiazide] 12.5 mg PO DAILY 07/03/19 [History] Calcium Carbonate/Vitamin D3 [Caltrate 600+D 1500 MG-400 Units] 1 tab PO BID # 60 tablet 07/07/19 [Rx] Referrals: Jack Hooks NP [Primary Care Provider] - 07/13/19 1:00 pm (Please arrive at 1230 for a lab appointment prior to seeing your provider.) - Discharge Summary/Plan Comment DC Time >30 min.: No - Patient Data Vitals - Most Recent: Last Vital Signs Temp 97.1 F 07/07/19 10:44 Pulse 85 07/07/19 10:44 Resp 16 07/07/19 10:44 BP 109/75 07/07/19 10:44 Pulse Ox 97 07/07/19 10:44 Weight - Most Recent: 217 lb I&O - Last 24 hours: Intake & Output 07/06/19 07/07/19 07/07/19 22:59 06:59 14:59 Intake Total 2689 1485 Output Total 900 Balance 1789 1485 Lab Results - Last 24 hrs: Laboratory Results - last 24 hr 07/06/19 07/07/19 07/07/19 Range/Units 17:00 05:49 07:12 Sodium 133 L 133 L (140-148) mmol/L Potassium 4.4 4.5 (3.6-5.2) mmol/L Chloride 99 L 100 (100-108) mmol/L Carbon Dioxide 24 24 (21-32) mmol/L Anion Gap 14.4 H 13.5 (5.0-14.0) mmol/L BUN 25 H 19 H (7-18) mg/dL Creatinine 1.6 H 1.4 H (0.8-1.3) mg/dL Est Cr Clr Drug Dosing 54.62 62.42 mL/min Estimated GFR (MDRD) 46 L 53 L (>60) Glucose 96 98 (74-106) mg/dL Calcium 7.0 L 6.6 L* (8.5-10.1) mg/dL POC WB Ioniz Calcium 0.88 L* (1.12-1.32) mmol/L Med Orders - Current: Current Medications Acetaminophen (Tylenol) 650 mg PO Q4H PRN PRN Reason: Pain (Mild 1-3)/fever Last Admin: 07/07/19 04:51 Dose: 650 mg Aspirin (Ecotrin) 325 mg PO DAILY [facility] Last Admin: 07/07/19 08:24 Dose: 325 mg Calcium Carbonate (Caltrate 600+D 1500 Mg-400 Units) 1 tab PO BID [facility] Last Admin: 07/07/19 10:37 Dose: 1 tab Docusate Sodium (Colace) 100 mg PO BID PRN PRN Reason: Constipation Fluoxetine HCl (Prozac) 20 mg PO DAILY [facility] Last Admin: 07/07/19 08:25 Dose: 20 mg Sodium Chloride (Normal Saline) 1,000 mls @ 125 mls/hr IV ASDIRECTED [facility] Last Admin: 07/07/19 04:49 Dose: 125 mls/hr Levothyroxine Sodium (Levothyroxine) 112 mcg PO DAILY@0730 [facility] Last Admin: 07/07/19 08:24 Dose: 112 mcg Magnesium Hydroxide (Milk Of Magnesia) 30 ml PO Q4H PRN PRN Reason: Constipation Last Admin: 07/04/19 16:13 Dose: 30 ml Ondansetron HCl (Zofran) 4 mg IV Q4H PRN PRN Reason: Nausea/Vomiting Last Admin: 07/06/19 23:41 Dose: 4 mg Pantoprazole Sodium (Protonix) 40 mg PO ACBREAKFAST [facility] Last Admin: 07/07/19 08:24 Dose: 40 mg Simvastatin (Zocor) 10 mg PO BEDTIME [facility] Last Admin: 07/06/19 20:37 Dose: 10 mg Sodium Chloride (Saline Flush) 10 ml FLUSH ASDIRECTED PRN PRN Reason: Keep Vein Open Discontinued Medications Hydrochlorothiazide (Hydrochlorothiazide) 12.5 mg PO DAILY [facility] Last Admin: 07/06/19 08:59 Dose: Not Given Sodium Chloride (Normal Saline) 1,000 mls @ 1,000 mls/hr IV ASDIRECTED [facility] Last Admin: 07/03/19 11:47 Dose: 1,000 mls/hr Sodium Chloride (Normal Saline) 1,000 mls @ 1,000 mls/hr IV ASDIRECTED [facility] Stop: 07/03/19 14:31 Last Admin: 07/03/19 14:12 Dose: 1,000 mls/hr Sodium Chloride (Normal Saline) 1,000 mls @ 250 mls/hr IV ASDIRECTED [facility] Stop: 07/03/19 22:31 Last Admin: 07/03/19 19:37 Dose: 250 mls/hr Sodium Chloride (Normal Saline) 1,000 mls @ 125 mls/hr IV ASDIRECTED [facility] Last Admin: 07/04/19 11:25 Dose: 125 mls/hr Sodium Chloride (Normal Saline) 1,000 mls @ 500 mls/hr IV ASDIRECTED [facility] Stop: 07/06/19 13:30 Last Admin: 07/06/19 10:05 Dose: 500 mls/hr Calcium Gluconate 2 gm/ Sodium (Chloride) 120 mls @ 100 mls/hr IV ONETIME ONE Stop: 07/07/19 11:11 Last Admin: 07/07/19 10:33 Dose: 100 mls/hr Lisinopril (Prinivil) 20 mg PO DAILY [facility] Last Admin: 07/06/19 09:00 Dose: Not Given Pantoprazole Sodium (Protonix Iv) 40 mg IV Q12H [facility] Last Admin: 07/06/19 05:21 Dose: 40 mg Propranolol HCl (Inderal La) 60 mg PO DAILY [facility] Last Admin: 07/06/19 09:00 Dose: Not Given Sodium Polystyrene Sulfonate (Kayexalate) 30 gm PO ONETIME ONE Stop: 07/05/19 06:17 Last Admin: 07/05/19 07:23 Dose: Not Given Sodium Polystyrene Sulfonate (Kayexalate) 30 gm PO ONETIME ONE Stop: 07/05/19 07:16 Sodium Polystyrene Sulfonate (Kayexalate) 30 gm PO ONETIME ONE Stop: 07/05/19 07:31 Last Admin: 07/05/19 07:20 Dose: 30 gm Sodium Polystyrene Sulfonate (Kayexalate) 30 gm PO ONETIME ONE Stop: 07/05/19 23:30 Last Admin: 07/05/19 23:48 Dose: 30 gm - Exam General: Reports: Alert, Oriented, Cooperative, No Acute Distress Lungs: Reports: Clear to Auscultation, Normal Respiratory Effort Cardiovascular: Reports: Regular Rate, Regular Rhythm, No Murmurs GI/Abdominal Exam: Soft, Non-Tender, No Organomegaly, No Distention
== END 2019-07-07 13:00 | disposition home or self-care (01) | DRG 641 ==
LOC: JP.ED 10:58 → JP.MS 13:22
PROVIDERS: ADMIT Hospitalist; ATTEND Hospitalist
DX: E86.0 Dehydration (principal); N17.9 Acute kidney failure, unspecified; E86.1 Hypovolemia; I95.89 Other hypotension; I12.9 Hypertensive chronic kidney disease with stage 1 through stage 4 chronic kidney disease, or unspecified chronic kidney disease; N18.3 Chronic kidney disease, stage 3 (moderate); E78.00 Pure hypercholesterolemia, unspecified; F41.9 Anxiety disorder, unspecified; E03.9 Hypothyroidism, unspecified; D64.9 Anemia, unspecified; G47.30 Sleep apnea, unspecified; A08.4 Viral intestinal infection, unspecified; Z86.73 Personal history of transient ischemic attack (TIA), and cerebral infarction without residual deficits; Z87.891 Personal history of nicotine dependence; Z88.8 Allergy status to other drugs, medicaments and biological substances; Z79.82 Long term (current) use of aspirin; Z79.890 Hormone replacement therapy; Z79.899 Other long term (current) drug therapy
CPT/HCPCS: 36415; 80048; 80053; 82330; 83690; 84132; 84484; 85025; 96360; 99285-25; A9270-GY; C9113; J0610; J2405; J7030; J7050

== ENCOUNTER 2019-09-21 10:43 | Emergency (ER) | payer OTHER ==
[2019-09-21] MEDS ORDERED: Diphtheria,Pertussis(Acell),Tetanus Vaccine 0.5 ML SDV IM ONE (11:20)
--- NOTE | 2019-09-21 11:20 | EDM.PDOC ---
ED HPI GENERAL MEDICAL PROBLEM - General Chief Complaint: Head Injury Stated Complaint: FELL AND HIT HEAD Time Seen by Provider: 09/21/19 11:05 Source of Information: Reports: Patient, Old Records, RN History Limitations: Reports: No Limitations - History of Present Illness INITIAL COMMENTS - FREE TEXT/NARRATIVE: 49 yo male got dizzy in the shower 2 d ago and fell hand hit his head incurring a superficial laceration at the anterior hair line. He has some amnesia as to events from around that time. He had off work yesterday and is supposed to work today, but does not feel well. Called the clinic and was told to come to the ER. Is not sure about tetanus. 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: Other (see below) (none) Left Upper Forehead Pain Score (Numeric/FACES): 6 - Related Data Allergies Allergy/AdvReac Type Severity Reaction Status Date / Time bupropion AdvReac Other Verified 07/03/19 11:22 varenicline [From Chantix] AdvReac Other Verified 07/03/19 11:22 Home Meds: Home Meds Aspirin [Aspirin EC] 325 mg PO DAILY 06/06/18 [History] FLUoxetine HCl [Prozac] 20 mg PO DAILY 06/06/18 [History] Fluticasone Propionate [Flonase] 2 spray INH DAILY 06/06/18 [History] Levothyroxine Sodium [Synthroid] 112 mcg PO DAILY 06/06/18 [History] Lisinopril 20 mg PO DAILY 06/06/18 [History] Propranolol HCl [Inderal LA] 60 mg PO DAILY 06/06/18 [History] Simvastatin 10 mg PO BEDTIME 06/06/18 [History] Cholecalciferol (Vitamin D3) [Vitamin D3] 50 mcg PO DAILY 07/03/19 [History] Folic Acid 1 mg PO DAILY 07/03/19 [History] Omeprazole 20 mg PO DAILY 07/03/19 [History] Triamcinolone Acetonide [Triamcinolone Acetonide 0.5% Oint] 1 applic TOP BID 07/03/19 [History] hydroCHLOROthiazide [Hydrochlorothiazide] 12.5 mg PO DAILY 07/03/19 [History] Calcium Carbonate/Vitamin D3 [Caltrate 600+D 1500 MG-400 Units] 1 tab PO BID #60 tablet 07/07/19 [Rx] Past Medical History HEENT History: Reports: Allergic Rhinitis, Impaired Vision Cardiovascular History: Reports: High Cholesterol, Hypertension, Other (See Below) Other Cardiovascular History: rt. 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 2 years ago Psychiatric History: Reports: Addiction, Anxiety Endocrine/Metabolic History: Reports: Hypothyroidism Hematologic History: Reports: Anemia, Other (See Below) Other Hematologic History: Vitamin D Deficiency Dermatologic History: Reports: Psoriasis - Infectious Disease History Infectious Disease History: Reports: Chicken Pox - Past Surgical History Cardiovascular Surgical History: Reports: Other (See Below) Other Cardiovascular Surgeries/Procedures: angiogram Other Respiratory Surgeries/Procedures: Has a cpap at home and states he does not use it like he should GI Surgical History: Reports: Colonoscopy, Taylor Fundoplication, Polypectomy Social & Family History - Family History Family Medical History: Noncontributory - Tobacco Use Smoking Status *Q: Never Smoker - Caffeine Use Caffeine Use: Reports: Soda - Recreational Drug Use Recreational Drug Use: Yes Drug Use in Last 12 Months: Yes Recreational Drug Type: Reports: Marijuana/Hashish Recreational Drug Use Frequency: Socially ED ROS GENERAL - Review of Systems Review Of Systems: See Below Constitutional: Reports: No Symptoms HEENT: Reports: No Symptoms Respiratory: Reports: No Symptoms Cardiovascular: Reports: No Symptoms GI/Abdominal: Reports: No Symptoms : Reports: No Symptoms Musculoskeletal: Reports: No Symptoms Skin: Reports: Wound (upper cental forehead at hairline) Neurological: Reports: Dizziness (mild) ED EXAM, HEAD INJURY - Physical Exam Exam: See Below Exam Limited By: No Limitations General Appearance: Alert, WD/WN, No Apparent Distress Head: Scalp Tenderness (upper central forehead) Eyes: Bilateral Eye: EOMI, PERRL Ears: Normal External Exam, Normal Canal, Hearing Grossly Normal, Normal TMs Nose: Normal Inspection, No Blood Throat/Mouth: Normal Inspection, Normal Lips, Normal Oropharynx, Normal Voice, No Airway Compromise Neck: Non-Tender, Full Range of Motion, Normal Inspection Respiratory: No Respiratory Distress, Lungs Clear Cardiovascular: Regular Rate, Rhythm, No Edema Extremities: Normal Inspection, Normal Range of Motion, Non-Tender, No Pedal Edema 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 ) - [place] Coma Score Best Eye Response ([place]): (4) Open Spontaneously Best Verbal Response ([place]): (5) Oriented Best Motor Response ([place]): (6) Obeys Commands Course - Vital Signs Last Recorded V/S: Last Vital Signs Temp 35.5 C L 09/21/19 11:02 Pulse 66 09/21/19 11:02 Resp 17 09/21/19 11:02 BP 133/91 H 09/21/19 11:02 Pulse Ox 97 09/21/19 11:02 - Orders/Labs/Meds Orders: Active Orders 24 hr Category Date Time Status Vaccines to be Administered [RC] PER UNIT ROUTINE Care 09/21/19 11:20 Ordered Diphth,Pertuss(Acell),Tet Vac [Adacel] Med 09/21/19 11:20 Once 0.5 ml IM .ONCE ONE Departure - Departure Time of Disposition: 11:30 Disposition: Home, Self-Care 01 Condition: Fair Clinical Impression: Concussion Qualifiers: Encounter type: initial encounter Loss of consciousness presence/duration: with LOC of 30 min or less Qualified Code(s): S06.0X1A - Concussion with loss of consciousness of 30 minutes or less, initial encounter - Discharge Information *PRESCRIPTION DRUG MONITORING PROGRAM REVIEWED*: No *COPY OF PRESCRIPTION DRUG MONITORING REPORT IN PATIENT PAUL: No Instructions: Post-Concussion Syndrome Referrals: Jack Hooks NP [Primary Care Provider] - Forms: ED Department Discharge Additional Instructions: Acetaminophen as needed for pain relief. Rest. Watch for and report signs of infection with your forehead wound. Recheck if worse or not improving. Sepsis Event Note (ED) - Evaluation Sepsis Screening Result: No Definite Risk - Focused Exam Vital Signs: Vital Signs Temp Pulse Resp BP Pulse Ox 09/21/19 11:02 35.5 C L 66 17 133/91 H 97 09/21/19 10:56 35.5 C L 66 17 133/91 H 97 - My Orders Last 24 Hours: My Active Orders 09/21/19 11:20 Vaccines to be Administered [RC] PER UNIT ROUTINE Diphth,Pertuss(Acell),Tet Vac [Adacel] 0.5 ml IM .ONCE ONE - Assessment/Plan Last 24 Hours: My Active Orders 09/21/19 11:20 Vaccines to be Administered [RC] PER UNIT ROUTINE Diphth,Pertuss(Acell),Tet Vac [Adacel] 0.5 ml IM .ONCE ONE
== END 2019-09-21 11:51 | disposition home or self-care (01) ==
LOC: JP.ED 10:43
DX: S06.0X1A Concussion with loss of consciousness of 30 minutes or less, initial encounter (principal); E78.00 Pure hypercholesterolemia, unspecified; I12.9 Hypertensive chronic kidney disease with stage 1 through stage 4 chronic kidney disease, or unspecified chronic kidney disease; N18.3 Chronic kidney disease, stage 3 (moderate); Z86.73 Personal history of transient ischemic attack (TIA), and cerebral infarction without residual deficits; F41.9 Anxiety disorder, unspecified; E03.9 Hypothyroidism, unspecified; Z88.6 Allergy status to analgesic agent; Z88.8 Allergy status to other drugs, medicaments and biological substances; Z79.82 Long term (current) use of aspirin; Z79.899 Other long term (current) drug therapy; Z23 Encounter for immunization; W22.8XXA Striking against or struck by other objects, initial encounter
CPT/HCPCS: 90471; 90715; 99284